=== PATIENT | female | born 1925 | race Caucasian/White ===

== ENCOUNTER 2016-06-16 09:50 | Outpatient (RCR) | payer MEDICARE, OTHER ==
[~2016-06-16 09:50] MED LIST: ACET600C PO; AMIT1TAB PO; CEFE2FRO IV; FLUT1AER IH; FURO-125 PO; LEVA1.2527 NEB; LEVO100T7 PO; LEVO750T9 PO; NAPR-1033 PO; RAMI10CA35 PO; TRAM50TA2 PO; UMEC62.5 INH; [UNRECOGNIZED DRUG - CODE] PO; ellipta PO
--- OUTSIDE RECORDS SUMMARY | 2016-06-16 09:54 | XMS REPORT | Continuity of Care Document ---
Author Author [facility] Organization [facility] Address Unknown Phone Unavailable Care Team Providers Care French Weaver Name Role Phone NO, LOCAL PHYSICIAN PCP Unavailable Insurance Providers Payer Name Policy Number Subscriber Name Relationship [employer] [id number] Sneha Cano 20 Self / Same As Patient [employer] [id number] Sneha Cano Self / Same As Patient Advance Directives Directive Response Recorded Date/Time Advance Directives No 04/03/16 9:55pm Organ Donor No 04/03/16 9:55pm Resuscitation Status DNR-Pt Request 04/03/16 9:55pm Chief Complaint and Reason for Visit Chief Complaint PNEUMONIA,SEPSIS Reason for Visit RML pneumonia Sepsis Problems Active Problems Medical Problem Onset Date Status RML pneumonia Unknown Acute Sepsis Unknown Acute Medications Current Home Medications Medication Dose Units Route Directions Days/Qty Instructions Start Date Levothyroxine Sodium 100 Mcg 100 Mcg Oral Daily 04/03/16 Furosemide 20 Mg 20 Mg Oral Daily 04/03/16 Tramadol Hcl 50 Mg 50 Mg Oral Twice A Day as needed for Pain Levalbuterol Hcl 1.25 Mg/3 Ml 1.25 Mg Nebullizer Three Times A Day 04/03/16 Fluticasone/Vilanterol 1 Each 1 Puff Inhalation Bedtime 04/04/16 Umeclidinium [place] 62.5 Mcg 1 Puff Inhalation Daily 04/04/16 Acetylcysteine 600 Mg 600 Mg Oral Twice A Day 04/04/16 Naproxen Sodium 220 Mg 220 Mg Oral Twice A Day as needed for Pain Chlordiazepoxid/Amitriptyline 1 Ea 1 Tab Oral Bedtime 04/06/16 Ramipril 10 Mg 10 Mg Oral Bedtime 04/06/16 Cefepime Hcl/Dextrose, Iso-Osm 2 Gm/100 Ml 2 Gm Intraven Daily 7 Days 04/07/16 Levofloxacin 750 Mg 750 Mg Oral Every 48 Hours 7 Days 04/07/16 Past Home Medications Medication Directions Ordered Status [Ellipta] , 62.5 Mg Oral Daily 04/03/16 Discontinued Amitrip Hcl/Chlordiazepoxide 1 Each Tablet, 1 Each Oral Bedtime 04/03/16 Discontinued Social History Social History Problem Response Recorded Date/Time Alcohol Use Denies Use 04/03/2016 9:55pm Recreational Drug Use No 04/03/2016 9:55pm Recent Foreign Travel No 04/03/2016 9:55pm Recent Infectious Disease Exposure No 04/03/2016 9:55pm Hospitalization with Isolation Denies 04/07/2016 1:46pm Smoking Status Never a Smoker 04/03/2016 9:55pm Recent Hopitalizations No 04/03/2016 9:55pm Hospitalization with Isolation Denies 04/07/2016 1:46pm Query Response Start Date Stop Date Smoking Status Never a Smoker Hospital Discharge Instructions Patient Instructions Physician Instructions New, Converted or Re-Newed RX: Other Patient Instructions: Admit to Dr Aguillon at [facility] Discharge Diet: No Restrictions Activity as Tolerated: Yes Care Plan Patient Instructions:: Admit to Dr Aguillon at [facility] Plan of Care Discharge Date 04/07/16 12:40pm Disposition 02 XFER SHT-TRM HOSP Instructions/Education Provided Hospital-Acquired Pneumonia Prescriptions See Medication Section Care Plan and Goals See Discharge Instructions Section Functional Status Query Response Date Recorded Patient Orientation Person Place April 06, 2016 11:42am Patient Orientation Person Place Time April 07, 2016 1:46pm Comprehension Ability Understands Concepts April 06, 2016 8:00pm Allergies, Adverse Reactions, Alerts Allergen Type Severity Reaction Status Last Updated Penicillins ([id number]) Allergy Unknown Active 04/03/16 Sulfa (Sulfonamide Antibiotics) ([id number]) Allergy Unknown Active Aspirin Allergy Unknown Active 04/03/16 Immunizations No immunization records. Vital Signs Acute Vital Signs Vital Response Date/Time Temperature (Fahrenheit) 97.6 degrees F (97.6 - 99.5) 04/07/2016 11:48am Temperature (Calculated Celsius) 36.31556 degrees C (36.4 - 37.5) 04/07/2016 11:48am Temperature Source Temporal 04/07/2016 11:48am Pulse Rate (adult) 96 bpm (60 - 90) 04/07/2016 8:00am Respiratory Rate 26 bpm (12 - 24) 04/07/2016 8:00am O2 Sat by Pulse Oximetry 95 % (88 - 100) 04/07/2016 9:45am Blood Pressure 110/64 mm Hg 04/07/2016 8:00am Blood Pressure Mean 79 mm Hg 04/07/2016 8:00am Pain Numeric Pain Scale 0-No Pain 04/07/2016 11:48am Height (Feet) 5 feet 04/03/2016 9:55pm Height (Inches) 2.00 inches 04/03/2016 9:55pm Height (Calculated Centimeters) 157.469708 cm 04/03/2016 9:55pm Weight (Pounds) 123 pounds 04/07/2016 6:00am Weight (Ounces) 4.0 oz 04/07/2016 6:00am Weight (Calculated Grams) 72191.260 gm 04/07/2016 6:00am Weight (Calculated Kilograms) 55.975481 kilograms 04/07/2016 6:00am Calculated BMI 22.0 04/03/2016 9:55pm Capillary Refill Capillary Refill Less Than 3 Seconds 04/07/2016 9:15am Results Laboratory Results Test Name Result Units Flags Reference Collection Date/Time Result Date/ Time Comments White Blood Count 7.0 10^3/uL 4.3-11.0 04/06/2016 5:10am 04/06/2016 5: 51am Red Blood Count 3.51 10^6/uL L 4.35-5.85 04/06/2016 5:10am 04/06/2016 5: 51am Hemoglobin 10.2 G/DL L 11.5-16.0 04/06/2016 5:04/06/2016 5:51am Hematocrit 32 % L 35-52 04/06/2016 5:04/06/2016 5:51am Mean Corpuscular Volume 91 FL 80-99 04/06/2016 5:04/06/2016 5: 51am Mean Corpuscular Hemoglobin 29 PG 25-34 04/06/2016 5:04/06/2016 5: 51am Mean Corpuscular Hemoglobin Concent 32 G/DL 32-36 04/06/2016 5: 5:51am Red Cell Distribution Width 15.8 % H 10.0-14.5 04/06/2016 5:2015 5:51am Platelet Count 159 10^3/uL 130-400 04/06/2016 5:04/06/2016 5:51am Mean Platelet Volume 10.1 FL 7.4-10.4 04/06/2016 5:04/06/2016 5: 51am Neutrophils (%) (Auto) 81 % H 42-75 04/06/2016 5:04/06/2016 5:51am Lymphocytes (%) (Auto) 12 % 12-44 04/06/2016 5:04/06/2016 5:51am Monocytes (%) (Auto) 6 % 0-12 04/06/2016 5:04/06/2016 5:51am Eosinophils (%) (Auto) 1 % 0-10 04/06/2016 5:04/06/2016 5:51am Basophils (%) (Auto) 0 % 0-10 04/06/2016 5:04/06/2016 5:51am Neutrophils # (Auto) 5.6 X 10^3 1.8-7.8 04/06/2016 5:04/06/2016 5: 51am Lymphocytes # (Auto) 0.8 X 10^3 L 1.0-4.0 04/06/2016 5:04/06/2016 5: 51am Monocytes # (Auto) 0.4 X 10^3 0.0-1.0 04/06/2016 5:04/06/2016 5: 51am Eosinophils # (Auto) 0.1 10^3/uL 0.0-0.3 04/06/2016 5:10am 04/06/2016 5 :51am Basophils # (Auto) 0.0 10^3/uL 0.0-0.1 04/06/2016 5:10am 04/06/2016 5: 51am Neutrophils % (Manual) 68 % 04/03/2016 8:25pm 04/03/2016 8:49pm Band Neutrophils 19 % 04/03/2016 8:25pm 04/03/2016 8:49pm Lymphocytes % (Manual) 9 % 04/03/2016 8:25pm 04/03/2016 8:49pm Monocytes % (Manual) 4 % 04/03/2016 8:25pm 04/03/2016 8:49pm Eosinophils % (Manual) 0 % 04/03/2016 8:25pm 04/03/2016 8:49pm Basophils % (Manual) 0 % 04/03/2016 8:25pm 04/03/2016 8:49pm Blood Morphology Comment NORMAL 04/03/2016 8:25pm 04/03/2016 8: 49pm Toxic Granulation 1+ 04/03/2016 8:25pm 04/03/2016 8:49pm Prothrombin Time 13.8 SEC 12.2-14.7 04/03/2016 8:25pm 04/03/2016 8: 48pm INR Comment 1.1 0.8-1.4 04/03/2016 8:25pm 04/03/2016 8:48pm INTERPRETIVE DATA SUGGESTED THERAPEUTIC RANGE FOR INR'S: VENOUS THROMBOSIS, PULMONARY EMBOLISM, OR PREVENTION OF SYSTEMIC EMBOLISM (EG. IN ATRIAL FIBRILLATION): 2.0 - 3.0 MECHANICAL PROSTHETIC HEART VALVES: 2.5 - 3.5* *NOTE: INR'S UP TO 4.5 MAY BE NECESSARY IN SELECTED GROUPS OF HIGH RISK PATIENTS. [employer] CONSENSUS CONFERENCE ON ANTITHROMBOTIC THERAPY (2000). Activated Partial Thromboplast Time 33 SEC 24-35 04/03/2016 8:25pm 8:48pm Urine Color YELLOW 04/04/2016 4:55am 04/04/2016 5:56am Urine Clarity CLEAR 04/04/2016 4:55am 04/04/2016 5:56am Urine pH 5 5-9 04/04/2016 4:55am 04/04/2016 5:56am Urine Specific [place] 1.025 * 1.016-1.022 04/04/2016 4:55am 2015 5:56am Urine Protein 2+ * NEGATIVE 04/04/2016 4:55am 04/04/2016 5:56am Urine Glucose (UA) NEGATIVE NEGATIVE 04/04/2016 4:55am 04/04/2016 5: 56am Urine RBC (Auto) 3+ * NEGATIVE 04/04/2016 4:55am 04/04/2016 5:56am Urine Ketones 2+ * NEGATIVE 04/04/2016 4:55am 04/04/2016 5:56am Urine Nitrite NEGATIVE NEGATIVE 04/04/2016 4:55am 04/04/2016 5:56am Urine Bilirubin 2+ * NEGATIVE 04/04/2016 4:55am 04/05/2016 11:04am CONFIRMATORY ICTOTEST WAS NEGATIVE. --- 04/05/16 1104 --- UR BILI previously reported as: 2+ * Urine Urobilinogen 1 MG/DL NORMAL 04/04/2016 4:55am 04/04/2016 5:56am Urine Leukocyte Esterase 3+ * NEGATIVE 04/04/2016 4:55am 04/04/2016 5: 56am Urine RBC 5-10 /HPF * 04/04/2016 4:55am 04/04/2016 5:56am Urine WBC 10-25 /HPF * 04/04/2016 4:55am 04/04/2016 5:56am Urine Bacteria LARGE /HPF * 04/04/2016 4:55am 04/04/2016 5:56am Urine Squamous Epithelial Cells 2-5 /HPF 04/04/2016 4:55am 2015 5:56am Urine Crystals NONE /LPF 04/04/2016 4:55am 04/04/2016 5:56am Urine Casts NONE /LPF 04/04/2016 4:55am 04/04/2016 5:56am Urine Mucus SMALL /LPF * 04/04/2016 4:55am 04/04/2016 5:56am Urine Culture Indicated YES 04/04/2016 4:55am 04/04/2016 5:56am Sodium Level 139 MMOL/L 135-145 04/06/2016 5:10am 04/06/2016 6:06am Potassium Level 3.6 MMOL/L 3.6-5.0 04/06/2016 5:04/06/2016 6:06am Chloride Level 106 MMOL/L 98-107 04/06/2016 5:04/06/2016 6:06am Carbon Dioxide Level 26 MMOL/L 21-32 04/06/2016 5:04/06/2016 6: 06am Anion Gap 7 MMOL/L 5-14 04/06/2016 5:04/06/2016 6:06am Blood Urea Nitrogen 15 MG/DL 7-18 04/06/2016 5:04/06/2016 6:06am Creatinine 0.67 MG/DL 0.60-1.30 04/06/2016 5:04/06/2016 6:06am BUN/Creatinine Ratio 22 04/06/2016 5:04/06/2016 6:06am Estimat Glomerular Filtration Rate > 60 04/06/2016 5:2015 6:06am GFR INTERPRETIVE DATA UNITS FOR ESTIMATED GFR (eGFR): mL/min/1.73 M2 REFERENCE RANGE FOR ESTIMATED GFR (eGFR) eGFR NORMAL eGFR >60 MODERATELY DECREASED eGFR 30-59 SEVERLY DECREASED eGFR 15-29 KIDNEY FAILURE <15 (OR DIALYSIS) Glucose Level 91 MG/DL 70-105 04/06/2016 5:04/06/2016 6:06am Glucometer 108 MG/DL 70-110 04/07/2016 6:08am 04/07/2016 6:25am Calcium Level 8.4 MG/DL L 8.5-10.1 04/06/2016 5:04/06/2016 6:06am Total Bilirubin 0.6 MG/DL 0.1-1.0 04/06/2016 5:04/06/2016 6:06am Alkaline Phosphatase 63 U/L 40-136 04/06/2016 5:04/06/2016 6:06am Aspartate Amino Transf (AST/SGOT) 13 U/L 5-34 04/06/2016 5:2015 6:06am Alanine Aminotransferase (ALT/SGPT) 10 U/L 0-55 04/06/2016 5:04/06 6:06am Troponin I < 0.30 NG/ML <0.30 04/03/2016 8:25pm 04/03/2016 9:02pm B-Type Natriuretic Peptide 238.2 PG/ML H <100.0 04/03/2016 8:26pm 2015 9:24pm Total Protein 4.6 G/DL L 6.4-8.2 04/06/2016 5:10am 04/06/2016 6:06am Albumin 2.5 G/DL L 3.2-4.5 04/06/2016 5:10am 04/06/2016 6:06am Lactic Acid Level 1.6 MMOL/L 0.5-2.0 04/03/2016 8:25pm 04/03/2016 8: 50pm Microbiology Results Procedure Source Result Collection Date/Time Result Date/Time Blood Culture Peripheral, Right Wrist No growth 04/03/2016 8:35pm 2015 4:18pm Blood Culture Peripheral, Lt Hand No growth 04/03/2016 8:25pm 04/06/2016 7: 15am Procedures Procedure Status Date Provider(s) Color Doppler echocardiography Active 04/04/16 LAXMI KIRAN DO Tracing only of electrocardiogram Completed 04/04/16 [facility] HATFIELD [facility] Tracing only of electrocardiogram Active 04/05/16 TIR[facility] HATFIELD [facility] Encounters Encounter Location Arrival/Admit Date Discharge/Depart Date Attending Provider Discharged Inpatient [facility] 04/03/16 9:32pm 12:40pm LAXMI KIRAN DO Recent Diagnosis RML pneumonia Sepsis
== END 2016-06-30 15:25 | disposition home or self-care (01) ==
PROVIDERS: ATTEND Internal Medicine
DX: I89.0 Lymphedema, not elsewhere classified (principal)

== ENCOUNTER → 2016-08-05 | Outpatient (CLI) | payer MEDICARE, OTHER ==
--- NOTE | 2016-08-05 15:52 | Diagnostic Imaging Report ---
EXAMINATION: PA and lateral views of the chest. INDICATION: COPD. COMPARISON: 04/06/2016. FINDINGS: There is right basilar atelectasis or infiltrate with a small pleural effusion. When compared to the 04/06/2016 exam, there has been resolution of the prominent bilateral perihilar infiltrates. The lungs are hyperinflated with mild interstitial scarring, compatible with COPD. The heart size is normal. No pneumothorax. The mediastinum and ferny appear unremarkable. There is scoliosis of the thoracolumbar spine convex in the upper lumbar spine level. On the lateral view, there is evidence of a new compression fracture in the mid thoracic spine compared to 04/06/2016. An old severely decompressed fracture in the lower thoracic spine is also noted and appears chronic. IMPRESSION: 1. There is a small right pleural effusion with adjacent right basilar infiltrate or atelectasis. 2. Compression fracture in the midthoracic spine, new from 04/06/2016. If the patient has pain or a history of recent injury, then further evaluation with a thoracic spine MRI would be helpful. 3. A voice message about the findings was left for Dr. Adam Hernandez at the time of dictation. Dictated by: Dictated on workstation # [id number]
== END ==
LOC: RAD 13:11
PROVIDERS: ATTEND Internal Medicine Critical Care Medicine
DX: J44.9 Chronic obstructive pulmonary disease, unspecified (principal); J45.998 Other asthma; J96.11 Chronic respiratory failure with hypoxia
CPT/HCPCS: 71020